=== PATIENT | female | born 1980 | race Caucasian/White ===

== ENCOUNTER 2020-01-16 11:20 | Emergency (ER) | payer OTHER ==
[2020-01-16 11:59] LABS: #Basophils 0.1 thou/uL (0.0-0.2); #Eosinphils 0.1 thou/uL (0.0-0.7); #Monocytes 0.5 thou/uL (0.11-0.59); #Neutrophils 6.7 thou/uL (1.40-6.50); %Basophils 0.9 % (0.0-1.0); %Eosinophils 0.9 % (0.0-10.0); %Lymphocytes 29.1 % (21.0-51.0); %Monocytes 4.6 % (0.0-10.0); %Neutrophils 64.5 % (42.0-75.0); Hemoglobin 14.6 g/dL (12.0-16.0); Mean Corpuscular HGB CONC 34.5 g/dL (32.0-36.0); Mean Corpuscular Hemoglobin 31.8 pg (27.0-31.0); Mean Corpuscular Volume 92.2 fL (78.0-98.0); Mean Platelet Volume 8.4 fL (7.4-10.4); Platelet Count 231 thou/uL (130-400); RBC Distribution Width 11.2 % (11.5-14.5); White Blood Cell (WBC) Count 10.3 thou/uL (4.8-10.8)
[2020-01-16 12:19] LABS: BHCG - Serum Negative (NEGATIVE); Pregs Control Background? CLEAR/WHITE (CLR/WHITE); Pregs Control Bar Appear? YES (CONTROL BAR)
[2020-01-16 12:26] LABS: ALT (SGPT) 30 U/L (8-55); AST (SGOT) 17 U/L (5-34); Albumin 4.1 g/dL (3.5-5.0); Alkaline Phosphatase 67 U/L (40-110); Anion Gap 13 mmol/L (10-20); BUN (Urea Nitrogen) 11 mg/dL (7.0-18.7); Bilirubin, Total 0.4 mg/dL (0.2-1.2); Calc. Creatinine Clearance 0 mL/min (70-130); Calcium 9.2 mg/dL (7.8-10.44); Carbon Dioxide 22 mmol/L (22-29); Chloride 105 mmol/L (98-107); Estimated GFR-MDRD 86; Globulin 3.1 g/dL (2.4-3.5); Glucose 92 mg/dL (70-105); Potassium 3.5 mmol/L (3.5-5.1); Protein, Total 7.2 g/dL (6.0-8.3); Sodium 136 mmol/L (136-145)
--- NOTE | 2020-01-16 13:00 | CT ---
CT ABDOMEN AND PELVIS PERFORMED WITHOUT CONTRAST ENHANCEMENT: Date: 01/16/2020 HISTORY: Right lower quadrant pain that started last night. FINDINGS: The lung bases are clear of any infiltrates. The liver, spleen, pancreas, and gallbladder regions appear unremarkable given the limitations of a n oncontrast study. Right and left adrenal glands are normal in appearance. There is a 5-6 mm nonobstructing right renal calculus. No ureteral calculi are seen. No significant periaortic or mesenteric adenopathy. CT of pelvis was performed without contrast enhancement. The appendix is normal. No adenopathy. There is suggestion of a somewhat lobulated contour to the uterus suggesting fibroids. Ultrasound would be required for assessment. IMPRESSION: 1. Nonobstructing right renal calculus. 2. Normal appendix. 3. Possible uterine fibroids. Pelvic ultrasound would be recommended for assessment of this on a non emergency basis. POS: OFF
[2020-01-16 13:36] LABS: Bacteria/HPF None Seen HPF (None Seen); Bilirubin Negative (Negative); Blood, Urine Negative (Negative); Clarity Clear (Clear); Glucose, Urine (Dipstick) Normal (Negative); Ketone, Urine Negative (Negative); Leukocyte 75 Leu/uL (Negative); Nitrite Negative (Negative); Protein, Urine (Dipstick) Negative (Neg-Trace); RBC/HPF 0-3 HPF (0-3); Specific Gravity, Urine 1.008 (1.002-1.036); Squamous Epithelial 0-3 HPF (0-3); Urobilinogen Normal mg/dL (Less than 2); WBC/HPF 0-3 HPF (0-3); pH, Urine 6.5 (5.0-9.0)
[2020-01-16] MEDS ORDERED: Ketorolac Tromethamine 30 MG/ML VIAL ONE (13:42)
--- NOTE | 2020-01-16 14:53 | ULT ---
US Pelvic Transvag History: Pelvic pain Comparison: None. Findings: Real-time grayscale and color evaluation of the pelvis performed transabdominal and transva ginal approach. The uterus measures 7 x 3.5 x 3.8 cm. Normal endometrial thickness of 3 mm. Right ovary measures 2 x 1.5 x 1.7 cm and the left ovary measures 2.9 x 2 x 2.3 cm. Adequate vascular flow to both ovaries. Small volume free fluid within the pelvis. Impression: Normal pelvic ultrasound.
== END 2020-01-16 15:52 | disposition home or self-care (01) ==
LOC: ERS 11:20
DX: R10.31 Right lower quadrant pain (principal); R19.7 Diarrhea, unspecified; G43.909 Migraine, unspecified, not intractable, without status migrainosus; Z79.899 Other long term (current) drug therapy
CPT/HCPCS: 74176; 76856; 80053; 81003; 81015; 84484; 84703; 85025; 87086; 93005; 96374; J1885